=== PATIENT | male | born 1990 | race Caucasian/White ===

== ENCOUNTER → 2019-04-05 | Outpatient (CLI) | payer OTHER ==
--- NOTE | 2019-04-05 16:43 | WOMENS IMAGING REPORT ---
EXAM DESCRIPTION: U/S BREAST UNILATERAL, COMPL COMPLETED DATE/TIME: 04/05/2019 7:57 am REASON FOR STUDY: N63.10 UNSPECIFIED LUMP IN THE RIGHT BREAST, UNSPECIFIED QUADRANT N63.10 UNSPECIF IED LUMP IN THE RIGHT BREAST, UNSPECIFIED DORA COMPARISON: None. TECHNIQUE: Real-time and static grayscale imaging performed of the right breast targeted to the area of clinical/mammographic concern. Selected color Doppler images recorded. LIMITATIONS: None. FINDINGS: MASS: The right breast was scanned from the 12 o'clock to the 12 o'clock axis with specia l attention to the 9 o'clock axis (area clinical palpable concern). No mass identified. Normal glan dular tissue. Dense homogeneous background tissue. OTHER: No other significant finding. IMPRESSION: 1. No suspicious findings detected by ultrasound. BIRAD: Negative. RECOMMENDATION: 1. Clinical correlation and patient advised follow-up with her provider. COMMENT: The [employer] (A[employer]) has developed recommendations for screening MRI of the breasts in certain patient populations, to be used in conjunction with mammography. Breast MRI s urveillance may be appropriate for women with more than 20% lifetime risk of developing breast cancer as determined by genetic testing, significant family history of the disease, or history of mantle r adiation for Hodgkins Disease. ACR Practice Guidelines 2008. TECHNICAL DOCUMENTATION: JOB ID: [id number] [employer]- All Rights Reserved Reading location - IP/workstation name: [email or web address]
== END ==
LOC: WI 07:03
PROVIDERS: ATTEND Nurse Practitioner Family
DX: N63.11 Unspecified lump in the right breast, upper outer quadrant (principal)
CPT/HCPCS: 76641

== ENCOUNTER 2019-08-22 08:09 | Emergency (ER) | payer BC, OTHER ==
[2019-08-22] MEDS ORDERED: TETRACAINE HCL 0.5% OPH SOLN 4 ML OD ONE (08:31)
[2019-08-22 09:26] VITALS: BP 129/86
--- NOTE | 2019-08-22 09:29 | ER Document Report ---
ED Eye Complaint - General Chief Complaint: Nausea Stated Complaint: EYE PAIN Time Seen by Provider: 08/22/19 08:23 Primary Care Provider: CLEMENTINA DANIELS FNP-C [Primary Care Provider] - Follow up as needed Mode of Arrival: Ambulatory Information source: Patient TRAVEL OUTSIDE OF THE [place] IN LAST 30 DAYS: No - HPI Eye location: Right Injury: Yes Notes: Patient presents complaint of right eye pain. He states this started yesterday. He states that he was burning some brush when he felt a foreign body go on the right eye. Since that time he has had persistent pain and the sensation of something being in his right eye. It has been watering and tearing. He has had some blurry vision. He denies any significant past medical history. He has had some nausea but no vomiting. The pain is been constant and moderate. It is worse when he moves his eyelids and better if he does not move his eyelids. Patient states the pain is a burning and scratching sensation. There is no radiation of the pain. Past Medical History - General Information source: Patient - Social History Smoking Status: Current Every Day Smoker Frequency of alcohol use: None Drug Abuse: None Family History: Reviewed & Not Pertinent Patient has suicidal ideation: No Patient has homicidal ideation: No Review of Systems - Review of Systems Constitutional: denies: Chills, Fever EENT: Eye pain, Eye discharge, Blurred vision, Tearing Cardiovascular: denies: Chest pain, Palpitations -: Yes All other systems reviewed and negative Physical Exam - Vital signs Interpretation: Normal - General General appearance: Appears well, Alert - HEENT Head: Normocephalic, Atraumatic Eyes: Periorbital edema, Tears Conjunctiva: Injected - right Cornea: Corneal abrasion, Flourescein stain uptake - right over pupil Extraocular movements intact: Yes Eyelashes: Matted Pupils: PERRL - Respiratory Respiratory status: No respiratory distress Chest status: Nontender Breath sounds: Normal Chest palpation: Normal - Cardiovascular Rhythm: Regular Heart sounds: Normal auscultation Murmur: No - Abdominal Inspection: Normal Distension: No distension Bowel sounds: Normal Tenderness: Nontender Organomegaly: No organomegaly - Back Back: Normal, Nontender - Extremities General upper extremity: Normal inspection, Nontender, Normal color, Normal ROM, Normal temperature General lower extremity: Normal inspection, Nontender, Normal color, Normal ROM, Normal temperature, Normal weight bearing. No: Zahra's sign - Neurological Neuro grossly intact: Yes Cognition: Normal Orientation: AAOx4 [place] Coma Scale Eye Opening: Spontaneous [place] Coma Scale Verbal: Oriented [place] Coma Scale Motor: Obeys Commands [place] Coma Scale Total: 15 Speech: Normal Motor strength normal: LUE, RUE, LLE, RLE Sensory: Normal - Psychological Associated symptoms: Normal affect, Normal mood - Skin Skin Temperature: Warm Skin Moisture: Dry Skin Color: Normal Course - Re-evaluation Re-evalutation: 08/22/19 09:27 Patient has a corneal abrasion over the pupil at approximately 9:00. He has a questionable small foreign body at approximately 3:00. I have called and discussed the case with the financial aid director, Dr. Kc. He will see the patient in the office immediately. Discharge - Discharge Clinical Impression: Right corneal abrasion Qualifiers: Encounter type: initial encounter Qualified Code(s): S05.01XA - Injury of conjunctiva and corneal abrasion without foreign body, right eye, initial encounter Condition: Stable Disposition: HOME, SELF-CARE Additional Instructions: Please go straight to Dr. Kc's office soon as you leave the emergency department. Tell Dr. Kc that you were not prescribed pain medication or antibiotics in the Emergency Department Forms: Return to Work Referrals: CLEMENTINA DANIELS, MARGO-C [Primary Care Provider] - Follow up as needed ILANA KC MD [ACTIVE STAFF] - 08/22/19 10:00 am
== END 2019-08-22 09:48 | disposition home or self-care (01) ==
LOC: ER 08:09
DX: S05.01XA Injury of conjunctiva and corneal abrasion without foreign body, right eye, initial encounter (principal); R11.0 Nausea; H57.11 Ocular pain, right eye; H53.8 Other visual disturbances; X58.XXXA Exposure to other specified factors, initial encounter; F17.200 Nicotine dependence, unspecified, uncomplicated
CPT/HCPCS: 99283; J3490